=== PATIENT | male | born 2005 | race Caucasian/White ===

== ENCOUNTER 2023-07-09 23:23 | Emergency (ER) | payer SELFPAY ==
[2023-07-09] VITALS (7 sets, daily range): BP systolic 160; BP diastolic 76; PULSE 64–79; RESP 16–21; TEMP 36.1; O2SAT 97–100
--- NOTE | 2023-07-09 23:39 | W.ED.GENAD ---
Discharge Plan Disposition Patient Disposition: Home Discharge Details Clinical Impression: Renal colic on right side, Nausea & vomiting Primary Care Provider: Guillermo Nolasco ED Provider: Geena Nuñez Home Meds and New Rx's Prescriptions: New tamsulosin [Flomax] 0.4 mg capsule 0.4 mg PO DAILY PRNQty: 7 0RF Rx Instructions: Take once daily for for continued pain. This can cause dizziness when going from sitting or lying to standing so do so slowly. Discharge Instructions Instructions: Renal Colic (ED), Acute Nausea and Vomiting (ED) Additional Instructions: 1. Alternate to 1000 mg of acetaminophen every 3 hours with 400 to 600 mg of ibuprofen. For pain not relieved by either of these you may take hydrocodone/acetaminophen every 4 hours. This is a narcotic and can be habit-forming. It can also cause drowsiness and constipation. You should not drink alcohol, drive, operate heavy machinery or make important decisions while taking this medication. 2. Strain your urine and bring any stones or sediment with you to your follow-up appointment with Dr. Riojas the urologist. His office will contact you with the follow-up appointment. 3. I have sent a prescription for Flomax 0.4 mg to take once daily for continued pain. This can cause dizziness when going from the lying or sitting to standing position so do so slowly. 4. Return to the emergency department for any new or worrisome symptoms such as fever, chills, intractable pain or any concerns. Discharge Data Discharge Physician: Geena Nuñez Medical Decision Making This is a healthy 18-year-old male with no significant past medical history who presents with acute onset of severe right lower quadrant pain radiating to the testicle. Although he could have appendicitis, I think it more likely that he has renal colic although he does not have back pain. Other considerations are mesenteric adenitis, right-sided colitis, Meckel's diverticulum, volvulus, or atypical gastroenteritis. He did have vomiting but has not had any diarrhea or fever. Usually appendicitis is more gradual in onset and he appears to be writhing in pain. My plan is to obtain blood work including a CBC to check for leukocytosis anemia and left shift, comprehensive metabolic panel to check his electrolytes renal and liver function, lipase to rule out appendicitis and a CT of the abdomen and pelvis with IV contrast. I will write for acetaminophen and ketorolac for pain and if his pain is not controlled we will give him a narcotic since his girlfriend is here and can drive him home if needed. We will check a urine for hematuria and infection. Differential Diagnosis Differential Diagnosis: Renal colic, appendicitis, mesenteric adenitis, viral process Medical Records Medical records reviewed: Yes I reviewed the patient's medical records. Imaging Data Radiologic Study: Imaging: CT Scan (Abdomen and pelvis with IV contrast) Radiologist's impression: 1. Right-sided moderate hydroureteronephrosis with a distal ureteral obstructing 5 x 2 mm calculus. No additional renal calculi. 2. Remainder of studies unremarkable. (No evidence of appendicitis) Lab Data Lab results reviewed: Yes I reviewed the patient's lab results. Lab results narrative: Normal white count, normal H&H, slight left shift, normal lactate, mild hypokalemia, normal renal function, normal magnesium, normal LFTs normal troponin and normal lipase. Urine is pending HPI General Mode of arrival: ambulatory. Date/Time Provider Initiated Documentation: 07/09/23 23:39. Limitations to Documentation: no limitations. Information obtained by: patient, RN notes reviewed and old records reviewed. History of Present Illness with intensity rated at 7. HPI Narrative: Time seen was on arrival in room 7. The patient is a healthy 18-year-old male who presents with an acute onset of right lower quadrant pain which began 2 to 3 hours ago. This was associated with nausea and vomiting 3-4 times which did not change his pain. The last thing he ate prior to the onset was pizza. He denies any other unusual foods. The pain is 7 out of 10 in severity it occasionally radiates to the right testicle. He denies any dysuria, hematuria or rashes. He has 1 single partner. He has no prior history of abdominal surgeries. He has no prior history of kidney stones. He does say movement makes it slightly worse. The pain was sudden in onset and located primarily in the right lower quadrant. The pain radiates to the right testicle. He denies any testicular swelling or rashes. He denies any foreign travel or sick contacts. His last bowel movement was this morning and was normal. He has not taken any medications for the pain. He denies any hematuria. He did state that he felt short of breath while he was having the pain but denies any cough rhinorrhea or other URI symptoms. He denies any previous similar episodes. He denies any trauma. He denies any fevers or chills Related Data Home Medications Medication Instructions Recorded Confirmed tamsulosin 0.4 mg capsule (Flomax) 0.4 mg PO DAILY PRN #7 caps 07/10/23 Previous Rx's Medication Instructions Recorded tamsulosin 0.4 mg capsule (Flomax) 0.4 mg PO DAILY PRN #7 caps 07/10/23 Allergies Allergy/AdvReac Type Severity Reaction Status Date / Time No Known Allergies Allergy Unverified 07/09/23 23:28 General Stated Complaint: Abd Prob CHILO: 3 Review of Systems Narrative: see hpi Constitutional Constitutional: Denies chills and Denies fever(s) PFSH All Active Problems (Updated 07/10/23 @ 04:01 by Geena Nuñez MD) Nausea & vomiting (Acute) Renal colic on right side (Acute) Social History Smoking/Tobacco Use Status: Never Smoking risk assessment performed?: Yes Alcohol Intake: current Alcohol Intake frequency: holidays/special occasions only Drug use: Occasionally Substance use type: marijuana Housing: apartment Do you feel safe at home: Yes Do you feel safe in your relationship?: Yes Exam Narrative Exam Narrative: The patient is a well-developed well-nourished male writhing in pain. He is mildly hypertensive. He is not tachycardic tachypneic or febrile. He has a normal room air O2 sat of 98%. Const General: cooperative, healthy appearing, well developed, well groomed and well hydrated Nutritional Appearance: average body habitus and well nourished Orientation: alert, awake and oriented x3 HENMT Head: normal to inspection, normocephalic and atraumatic Ears: hearing grossly normal bilaterally and external ears normal General nose exam: external nose normal, nares normal and no nasal discharge Face and sinus: normal facial exam, sinuses nontender and face symmetric Mouth: oral mucosae normal, lip normal, tongue normal, oropharynx normal, moist mucous membranes and other (Normal phonation. The patient is handling secretions.) Throat: posterior oropharynx normal and uvula midline Eyes General: appearance normal, both eyes and all related structures Eyelids: eyelids normal Conjunctivae: conjunctivae normal Sclera: sclerae normal Cornea: corneas normal Pupils: PERRL EOM: EOM intact bilaterally and No nystagmus Neck Neck: normal visual inspection, full ROM, no lymphadenopathy, no meningeal signs, trachea midline and supple Lymphatic: no lymphadenopathy noted Chest Chest: normal inspection of the chest Resp Effort & Inspection: normal respiratory effort, able to speak in complete sentences, no audible wheezes, no nasal flaring, no respiratory distress, no retractions, no stridor, not tachypneic, no tracheal deviation, no use of accessory muscles, No prolonged expiratory phase and other (Normal inspiratory to expiratory ratio.) Auscultation: clear to auscultation bilaterally, no rales, no rhonchi, no wheezes and no rubs Tactile Fremitus: tactile fremitus absent Cardio Jugular venous pressure: no JVD Palpation: normal PMI Rate: regular rate Rhythm: regular rhythm Heart Sounds: S1 normal, S2 normal, no gallops, no murmurs and no rubs GI Inspection: normal to inspection and non-distended Palpation: soft, no hepatosplenomegaly, no guarding and nontender Percussion: normal to percussion Auscultation: normal bowel sounds Other: No right lower quadrant tenderness. Negative psoas and obturator signs. Negative Rovsing's sign. General: No CVA tenderness Penis: normal penis Meatus: meatus normal Scrotum: scrotum normal Testes: normal Other: No testicular swelling or discoloration. No inguinal hernias detected. No rashes normal uncircumcised male genitalia. Back/Spine/Pelvis Back: no CVA tenderness and No back tenderness Cervical Spine: normal cervical lordosis, cervical ROM normal, No cervical muscular tenderness, No pain with cervical ROM, No cervical spinal tenderness and No step off deformity Thoracic/Lumbar Spine: thoracic and lumbar spine normal to inspection, No thoracic spinal tenderness and No lumbar spinal tenderness Pelvis: no pain with anterior-posterior compression and no pain with lateral compression Skin General skin exam: no rashes or lesions noted, turgor normal, no petechiae, no purpura and other (Skin is normal for ethnicity.) Lesions: no lesions Rashes: no rashes Trauma: no lacerations or abrasions Neuro General: patient alert, patient awake, patient oriented x3, moves all extremities, no meningeal signs, no focal motor deficits and CN's II-XI intact bilaterally Cranial Nerves: CN's II-XI intact bilaterally, PERRL, accommodation normal, EOM intact bilaterally, no nystagmus, facial strength normal, tongue midline, hearing normal and no nystagmus Cognition: normal cognition Speech: speech normal Motor: muscle tone normal throughout and strength 5/5 throughout Sensory Exam: no sensory deficits noted Pupils: Normal pupillary reactivity/response: bilateral Extrem General: normal to inspection, full ROM, capillary refill normal, no clubbing, cyanosis or edema and no calf tenderness Psych Appearance: grossly normal Affect: normal affect Attitude: cooperative Thought Process: normal Thought Content: normal Insight: insight good Judgment: judgment good Other: The patient appears to have capacity make medical decisions. Course 23:54 PM. Patient is still having severe pain and has not noticed any improvement after acetaminophen and ketorolac. I will write for some Dilaudid. 00:55am patient's pain improved after Dilaudid. I have reviewed his CT scan and it appears that he has 3 to 4 mm stone in the right ureter with mild hydro. I have written for a strainer and Flomax and have updated the patient. We are still awaiting the reading from [facility]. I have notified the patient of orthostatic hypotension and associated with Flomax. 01:43 AM the patient is unable to provide a urine. His pain has increased and he is having vomiting. I have written for another liter of NS, IV Zofran and 1 mg of hydromorphone. I have updated him on the findings of renal colic confirmed by [facility]. We are still awaiting his urinalysis to rule out infection. 03:32 the patient's pain is improved and is now 3 out of 10 in severity. However he is continuing to have nausea and vomiting. I have ordered an EKG to check for QT prolongation and if its within normal limits we will give him droperidol 1.25 mg IV. I have instructed him to strain his urine and to alternate acetaminophen every 3 hours with ibuprofen as needed for pain and to take hydrocodone which we will dispense for pain not relieved by [id number] medications. I have advised him he will be contacted by the urology office for follow-up and to bring any sediment or stones with him to his follow-up appointment. I have advised him to drink small amounts of fluid every 10 minutes preferably electrolyte solution such as Pedialyte or Gatorade. The patient was also advised to return for any new or worrisome symptoms such as intractable pain, fever chills or any concerns. The patient voiced understanding agree with the discharge plan. All his questions and concerns were addressed prior to discharge. 3:55 am The patient's EKG reveals normal intervals. He is keeping down po and is ready for discharge. Vital Signs Vital signs: Vital Signs Respiratory Rate 17 07/09/23 23:29 Pulse Oximetry 98 07/09/23 23:29 Temperature 36.1 C L 07/09/23 23:34 Temperature Source Oral 07/09/23 23:34 Pulse 74 07/09/23 23:31 Pulse 64 07/09/23 23:31 Respiratory Rate 16 07/09/23 23:31 Respiratory Effort Normal, Non-Labored 07/09/23 23:31 Blood Pressure 160/76 H 07/09/23 23:31 Blood Pressure Mean 104 07/09/23 23:31 Pulse Oximetry 99 07/09/23 23:31 Pain Level 10 07/09/23 23:34 Lab/Test Results Lab/Test Results: Normal white count normal H&H slight left shift normal coags normal renal function normal glucose normal albumin and normal liver function test normal lipase
[2023-07-09] MEDS: ACETAMINOPHEN 1,000 MG/100 ML BTL 400 MG IVPB (23:48)
[2023-07-09] MEDS: Ketorolac 15 MG/ML VIAL IVP (23:49)
[2023-07-09] MEDS: Normal Saline 1,000 ML 1000 ML IV (23:49)
[2023-07-09 23:51] LABS: Lactate 1.3 mmol/L (0.6-1.4)
[2023-07-09 23:52] LABS: Abs Immature Grans 0.02 10^3/uL (0.0-0.06); Absolute Basophil Count 0.08 10^3/uL (0.0-0.2); Absolute Lymphocyte Count 4.73 10^3/uL (1.2-3.4); Absolute Monocyte Count 1.03 10^3/uL (0.1-0.8); Absolute Neutrophil Count 4.47 10^3/uL (1.2-6.7); Basophils % 0.8; HGB 14.4 g/dL (13.5-17.5); Immature Grans % 0.2; Lymphocytes % 45.3; MCH 29.8 pg (27.0-33.0); MCHC 35.1 % (32.0-36.0); MCV 85 fL (80-95); MPV 10.1 fL (8.0-11.0); Monocytes % 9.9; Neutrophils % 42.8; Platelet Count 237 10^3/uL (130-400); RBC 4.84 10^6/uL (4.36-5.78); RDW 11.6 % (11.8-14.1); RDW-SD 35.8 fL; WBC 10.43 10^3/uL (4.4-10.8)
[2023-07-10] VITALS: O2SAT 100
[2023-07-10] MEDS: HYDROmorphone 2 MG/ML SYR 0.5 MG IVP (00:03)
[2023-07-10 00:05] LABS: INR 1.1 (0.9-1.1)
[2023-07-10 00:10] VITALS: O2SAT 100
[2023-07-10 00:19] LABS: ALT 25 U/L (16-63); AST 25 U/L (15-37); Albumin 4.4 g/dL (3.4-5.0); Alkaline Phosphatase 76 U/L (46-116); BUN 13 mg/dL (7-18); Bilirubin, Total 0.5 mg/dL (0.2-1.0); CREATININE 1.1 mg/dL (0.70-1.30); Calcium 9.5 mg/dL (8.5-10.1); Chloride 103 mmol/L (98-107); Estimated GFR 98.56 (mL/min/1.73m2); Glucose 97 mg/dL (74-106); Lipase 25 U/L (16-77); Magnesium 2.1 mg/dL (1.8-2.4); Potassium 3.4 mmol/L (3.5-5.1); Sodium 142 mmol/L (136-145); Total Protein 7.9 g/dL (6.4-8.2); Troponin I < 50 ng/L (<or=60)
[2023-07-10] MEDS: Omnipaque 350 MG/ML 100 ML BTL IJ (00:46)
[2023-07-10] MEDS: Normal Saline - Diluent 50 ML VIAL IJ (00:47)
[2023-07-10] MEDS: Tamsulosin 0.4 MG CAPCR PO (00:59)
--- NOTE | 2023-07-10 01:21 | DI.VRAD_ITS ---
PROCEDURE INFORMATION: Exam: CT Abdomen And Pelvis With Contrast Exam date and time: 07/10/2023 12:33 AM Age: 18 years old Clinical indication: Abdominal pain; Localized; Right lower quadrant (rlq) TECHNIQUE: Imaging protocol: Computed tomography of the abdomen and pelvis with contrast. Contrast material: OMNIPAQUE 350; Contrast volume: 100 ml; Contrast route: INTRAVENOUS (IV); COMPARISON: No relevant prior studies available. FINDINGS: Lungs: Lung bases are clear. Pleural spaces: No pleural effusion. Heart: Normal heart size. No pericardial effusion. No coronary artery atherosclerotic calcium. Liver: Normal. No mass. Gallbladder and bile ducts: The gallbladder is normal in size and shape. No stones or inflammatory changes. Pancreas: Normal. No ductal dilation. Spleen: Normal. No splenomegaly. Adrenal glands: Normal. No mass. Kidneys and ureters: Moderate right hydroureteronephrosis with a 5 x 2 mm distal ureteral obstructing calculus. No significant inflammation surrounding the right kidney. No additional calculi of either kidney. Stomach and bowel: Unremarkable. No obstruction. No mucosal thickening. Appendix: No evidence of appendicitis. Intraperitoneal space: Unremarkable. No free air. No significant fluid collection. Vasculature: Unremarkable. No abdominal aortic aneurysm. Lymph nodes: Unremarkable. No enlarged lymph nodes. Urinary bladder: Urinary bladder is unremarkable in appearance. No wall thickening. No intravesicular calculi. No intravesicular gas. Reproductive: Unremarkable as visualized. Bones/joints: Unremarkable. No acute fracture. Soft tissues: Unremarkable. IMPRESSION: 1. Right sided moderate hydroureteronephrosis with a distal ureteral obstructing 5 x 2 mm calculus. No additional renal calculi. 2. Remainder of study is unremarkable. Dictated and Authenticated by: Cirilo Antonio MD. Ordering:NEVIN Seay MD
[2023-07-10] MEDS: Normal Saline 1,000 ML 1000 ML IV (01:35)
[2023-07-10] MEDS: HYDROmorphone 2 MG/ML SYR 1 MG IVP (01:38)
[2023-07-10] MEDS: Ondansetron 4 MG/2 ML VIAL IVP (01:38)
[2023-07-10] MEDS: Normal Saline 500 ML IV (02:58)
[2023-07-10 03:03] LABS: Bilirubin Negative (Negative); Blood Moderate (Negative); Clarity Clear (Clear); Glucose Negative (Negative); Ketones 15 mg/dL (Negative); Leukocyte Esterase Negative (Negative); Nitrite Negative (Negative); Specific Gravity <= 1.005 (1.005-1.025); Urobilinogen 0.2 mg/dL (Up to 0.2); pH 5.5 (5-8)
[2023-07-10 03:08] LABS: WBC Negative HPF (0-5)
[2023-07-10 03:09] LABS: Bacteria Negative HPF (Negative); C & S Indicated? No; Casts Negative LPF (Negative); Crystals Negative HPF (Negative); Epithelial Cells Negative HPF (Negative); Mucus Negative (Negative)
--- NOTE | 2023-07-10 03:15 | RT.EKG_ITS ---
APPROVED REPORT Exam: Resting ECG Reason for Exam: rule out QT prolongation Patient Location: E HR:72 bpm ECG Measurements Heart Rate 72 AXIS HI 135 P 60 QRSd 86 QRS 42 QT 395 T 18 QTc 431 Conclusion Sinus rhythm...normal P axis, V-rate 60- 99 NSR, Normal intervals isolated T wave inversion in III. No QT prolongation. No STEMI. No previous catalino ilable for comparison.
[2023-07-10 03:25] VITALS: BP 167/60; PULSE 72; RESP 16; O2SAT 99
[2023-07-10] MEDS: Droperidol 5 MG/2 ML VIAL 1.25 MG IVP (03:37)
--- NOTE | 2023-07-10 23:30 | DI.CT_ITS ---
Exam(s) CT ABDOMEN PELVIS W EXAM: CT ABDOMEN PELVIS W CLINICAL HISTORY: RLQ pain TECHNIQUE: Imaging Protocol: Axial computed tomography images with coronal and sagittal reformatted images were created and reviewed CONTRAST MATERIAL: Intravenous: Omnipaque 350 Contrast volume:100 mL Oral: No COMPARISON: No exams were available for comparison FINDINGS: ABDOMEN: Lung Bases: Normal where visualized. Liver: Normal density. No measurable mass. Portal, Superior Mesenteric, and Splenic Veins: Unremarkable. Gallbladder and Biliary Tract: No radiodense calculus or dilation. Pancreas: Normal density, no abnormal calcifications or inflammatory process. Spleen: Normal. Adrenals: No masses seen. Kidneys: Normal size, contour and axis. There is a 4.5 mm stone in the distal right ureter proximal t o the UVJ causing moderate hydronephrosis. No masses seen. Abdominal Aorta: Abdominal portion non-dilated. Bowel: No obstruction or bowel wall thickening. Appendix is unremarkable. Peritoneal Cavity: There is a trace amount of free fluid in the pelvis. No free air. Lymph Nodes: Within normal limits. Bones: Within normal limits for the patient's age. Soft Tissues: Unremarkable. PELVIS: Bladder: There is thickening of the wall of the urinary bladder. Reproductive Organs: Unremarkable as visualized. Lymph Nodes: Within normal limits. Bones: Within normal limits for the patient's age. IMPRESSION: 1. There is a 4.5 mm stone in the distal right ureter proximal to the UVJ causing moderate hydronephr osis. 2. Mild wall thickening seen in the urinary bladder. This is likely due to underdistention. Cystiti s cannot be excluded. Please correlate clinically. RADIATION DOSE DELIVERED: Total DLP DATA REPOSITORY: All CT scans at this facility are submitted to the National Radiology Data Registry (NRDR) Dose Index Registry (DIR) with the [employer] (A[employer]). RADIATION OPTIMIZATION: All CT scans at this facility use at least one of these dose optimization te chniques: automated exposure control; mA and/or kV adjustment per patient size (includes targeted exa ms where dose is matched to clinical indication); or iterative reconstruction.
== END 2023-07-10 04:10 | disposition home or self-care (01) ==
PROVIDERS: Emergency Provider Emergency Medicine Emergency Medical Services; PCP Family Medicine
DX: R11.2 Nausea with vomiting, unspecified (principal); R10.32 Left lower quadrant pain; N13.2 Hydronephrosis with renal and ureteral calculous obstruction
CPT/HCPCS: 80053; 83690; 93005; 96361; 96374; 96375; 96376; 99285; 74177; 81003; 81015; 83605; 83735; 84484; 85025; 85610; 93010; J0131; J1170; J1790; J1885; J2405; J3490